=== PATIENT | female | born 1980 | race Two or more races ===

== ENCOUNTER 2018-05-19 05:36 | Emergency (ER) | payer OTHER ==
[~2018-05-19] VITALS: Ht 160 cm; Wt 56.7 kg
== END 2018-05-19 08:47 | disposition home or self-care (01) ==
LOC: ER 05:36
DX: B34.9 Viral infection, unspecified (principal)

== ENCOUNTER 2018-05-20 08:44 | Emergency (ER) | payer OTHER ==
[~2018-05-20] VITALS: Ht 157.5 cm; Wt 49.0 kg
== END 2018-05-20 12:45 | disposition home or self-care (01) ==
LOC: ER 08:44
DX: K29.60 Other gastritis without bleeding (principal)